=== PATIENT | female | born 1995 | race Caucasian/White ===

== ENCOUNTER 2024-12-24 19:40 | Emergency (ER) | payer OTHER, SELFPAY ==
[2024-12-24 19:40] VITALS: BP 126/84; PULSE 85; RESP 16; O2SAT 100
--- NOTE | 2024-12-24 19:47 | ED_ITS ---
HPI - Wound/Laceration General Chief Complaint: Wound/Laceration Stated Complaint: Chin laceration Time Seen by Provider: 12/24/24 19:46 Source: patient and family Mode of arrival: ambulatory Limitations: no limitations History of Present Illness HPI narrative: Patient is a 29-year-old female with a chin laceration which occurred prior to arrival. Minimal bleeding. Patient tripped and slipped and hit her chin on the wall. She did not have syncope. Onset (ago): minute(s) (Thirty) Location: face (Chin) Place: home Patient tetanus UTD: No Context: accidental Associated symptoms: pain Treatments prior to arrival: bandage Related Data Home Medications ?Medication ?Instructions ?Recorded ?Confirmed ?Last Taken ?Type No Home Medications 12/24/24 12/24/24 U nknown History Allergies Allergy/AdvReac Type Severity Reaction Status Date / Time No Known Allergies Allergy Verified 12/24/24 19:47 Review of Systems Review of Systems: All systems reviewed & are unremarkable except as noted in HPI and below Constitutional: Constitutional: Reports no additional constitutional complaints Eyes: Eyes: Reports no additional eye complaints ENT: Reports system reviewed and no additional complaints, except as documented Cardiovascular: Cardiovascular: Reports no additional cardiovascular complaints Respiratory: Respiratory: Reports no additional respiratory complaints Gastrointestinal: Gastrointestinal: Reports no additional gastrointestinal complaints Genitourinary: Genitourinary: Reports no additional female genitourinary complaints Musculoskeletal: Musculoskeletal: Reports no additional musculoskeletal complaints Integumentary/Breasts: Skin/Breast: Reports system reviewed and no additional complaints, except as docu Neurologic: Reports system reviewed and no additional complaints, except as documented Psychiatric: Psychiatric: Reports no additional psychiatric complaints Endocrine: Endocrine: Reports no additional endocrine complaints Hematologic/Lymphatic: Hematologic/Lymphatic: Reports no additional he matologic/lymphatic complaints Allergic/Immunologic: Allergic/Immunologic: Reports no additional allergic/immunologic complaints Exam Const: General: healthy appearing Nutritional Appearance: well nourished Orientation/consciousness: patient oriented x3 HENMT: Head: normal to inspection Ears: external ears normal Face/Nose/Sinus: Normal external nose present Eyes: Conjunctivae: conjunctivae normal Pupils: Equal, round and reactive pupils present EOM: EOMs intact bilaterally Neck: Neck: normal visual inspection Chest: Chest palpation & inspection: normal inspection of the chest Resp: Effort & Inspection: normal respiratory effort and not labored Auscultation: clear to auscultation bilaterally and no crackles Cardio: Rate: regular rate Rhythm: regular rhythm Heart sounds: no murmurs GI: Inspection: non-distended GI Palp: Yes Soft to palpation and No Tenderness to palpation present (GI) Auscultation: normal bowel sounds Back/Spine/Pelvis: Back: no CVA tenderness Skin: General skin exam: normal color Rashes: no rashes Wounds: wound noted Other: Chin laceration linear 2 cm with subcutaneous tissue seen and minimal bleeding Neuro: General: patient oriented x3, moves all extremities and no meningeal signs Extrem: General: normal to inspection, no clubbing, cyanosis or edema and no pedal edema Psych: Mental Status: mental status grossly normal Affect: normal affect Attitude: cooperative Course Vital Signs Vital signs: Vital Signs Pulse Rate 85 12/24/24 19:40 Respiratory Rate 16 12/24/24 19:40 Blood Pressure 126/84 12/24/24 19:40 Pulse Oximetry 100 12/24/24 19:40 Oxygen Delivery Room Air 12/24/24 19:40 Pulse Rate 85 12/24/24 19:40 Respiratory Rate 16 12/24/24 19:40 Blood Pressure 126/84 12/24/24 19:40 Pulse Oximetry 100 12/24/24 19:40 Oxygen Delivery Room Air 12/24/24 19:40 Procedures Other Procedure Procedure 1: Other Procedure: Chin laceration 2 cm: Area cleaned with chlorhexidine spray, sterile technique suture closure simple sutures, x6 simple sutures, area cleaned again with chlorhexidine, triple antibiotic ointment and a bandage placed, patient tolerated procedure well and no complications MDM - Wound/Laceration MDM Narrative Medical decision making narrative: Patient is a 29-year-old female with a chin laceration prior to arrival. This was an accident after trip and fall. Suture area closed. Tetanus booster. No antibiotics needed. No scans needed. Discharge Plan Discharge Clinical Impression: Chin laceration Qualifiers: Encounter type: initial encounter Qualified Code(s): S01.81XA - Laceration without foreign body of other part of head, initial encounter Patient Disposition: Home Condition: Stable Instructions: Care For Your Stitches (ED), Laceration (ED) Additional Instructions: Please have the stitches removed in 7-8 days. You may come back to the emergency room or usual primary doctor to have stitches removed. Please place antibiotic ointment on the area once to twice a day. Patient Language: Greenlandic Prescriptions: No Action No Home Medications Follow-up/Referrals: Giovanna Gagnon MD [Primary Care Provider, Family Practice]
[2024-12-24] MEDS: LIDOCAINE 1% LOCAL INJ 10 ML VIAL INFILTRATE (20:00)
[2024-12-24] MEDS: TETANUS,DIPHTHERIA,AC PERTUSSIS ADULT 0.5 ML (ADACEL) IM (20:00)
--- OUTSIDE RECORDS SUMMARY | 2024-12-24 20:19 | XMS_ITS | Clinical Summary ---
Author Organization [facility] Address [address] [facility] [place] [address] Care Team Providers Care Winter Intern Name Role Phone Giovanna Gagnon MD Primary Care Provider [phone] Allergies No known active allergies Medications vitamin, low iron, 27-0.8 MG tablet Take 1 tablet by mouth daily. Active Blood Glucose Monitoring Suppl (ONE TOUCH ULTRA 2) w/Device Kit 4 (four) times daily. 12/03/2019 Active Lancets (ONETOUCH DELICA PLUS [id number]) Misc 4 (four) times daily. 12/23/2019 Active Active Problems Problem Noted Date Diagnosed Date Premature rupture of membranes 07/13/2021 Normal labor 01/11/2020 Family History Medical History Relation Comments Diabetes Maternal Grandmother Diabetes Paternal Grandfather Relation Status Comments Maternal Grandmother Paternal Grandfather Social History Tobacco Use Types Packs/Day Years Used Date Smoking Tobacco: Never Smokeless Tobacco: Never Tobacco Cessation:Counseling Given: Not Answered Alcohol Use Standard Drinks/Week Comments Not Currently 0 (1 standard drink = 0.6 oz pur e alcohol) [facility] Utilities Answer Date Recorded In the past 12 months has e [employer], oil, or water [employer] threatened to shut off services in your home? No 02/10/2023 Humiliation, Afraid, Rape, and Kick questionnair e Answer Date Recorded Within the last year, have y ou been afraid of your partner or ex-partner? No 02/10/2023 Within the last year, have y ou been humiliated or emotionally abused in other ways by your partner or ex-partner? No Within the last year, have y ou been kicked, hit, slapped, or otherwise physically hurt by your partner or ex-partner? No 02/10/2023 Within the last year, have y ou been raped or forced to have any kind of sexual activity by your partner or ex-partner? No 02/10/2023 Social Connection and Isolation Panel Answer Date Recorded In a typical week, how many times do you talk on the phone with family, friends, or neighbors? More than three times a week 02/10/2023 How often do you get togethe r with friends or relatives? Twice a week 02/10/2023 How often do you attend chur or faith services? Never 02/10/2023 Do you belong to any clubs o r organizations such as religion groups, unions, fraternal or athletic groups, or school groups? No 02/10/2023 How often do you attend meet ings of the clubs or organizations you belong to? Never 02/10/2023 Are you , , di vorced, , never , or living with a partner? Never 02/10/2023 AUDIT-C Answer Date Recorded Q1: How often do you have a drink containing alcohol? Never 02/10/2023 Q2: How many drinks containi ng alcohol do you have on a typical day when you are drinking? Patient does not drink Q3: How often do you have si x or more drinks on one occasion? Never 02/10/2023 Overall Financial Resource Strain (CARDIA) Answe r Date Recorded How hard is it for you to pa y for the very basics like food, housing, medical care, and heating? Not hard at all 02/10/2023 [facility] - Occupational Stress Questionnaire Answer Date Recorded Do you feel stress - tense, restless, nervous, or anxious, or unable to sleep at night because your mind is troubled all the time - these days? Only a little 02/10/2023 Exercise Vital Sign Answer Date Recorde d On average, how many days pe r week do you engage in moderate to strenuous exercise (like a brisk walk)? 2 days 02/10/2023 On average, how many minutes do you engage in exercise at this level? 20 min 02/10/2023 Hunger Vital Sign Answer Date Recorded Within the past 12 months, y ou worried that your food would run out before you got the money to buy more. Never true 02/11/20 23 Within the past 12 months, t he food you bought just didn't last and you didn't have money to get more. Never true 02/10/2023 PRAPARE - Transportation Answer Date Re corded In the past 12 months, has l ack of transportation kept you from medical appointments or from getting medications? No 01/18 In the past 12 months, has l ack of transportation kept you from meetings, work, or from getting things needed for daily living? No 02/10/2023 Housing Stability Vital Sign Answer Carlos e Recorded In the last 12 months, was t here a time when you were not able to pay the mortgage or rent on time? No 02/10/2023 In the last 12 months, how many places have you lived? 1 02/10/2023 In the last 12 months, was t here a time when you did not have a steady place to sleep or slept in a detention (including now)? 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 Gender Identity Female 07/13/2021 6:26 AM CDT Sexual Orientation Not on file Last Filed Vital Signs Vital Sign Reading Time Taken Comments Blood Pressure 118/69 02/13/2023 10:38 AM STAFF DESIGN ENGINEER Pulse 87 02/13/2023 10:38 AM STAFF DESIGN ENGINEER Temperature 36.5 C (97.7 F) 02/13/2023 10:38 AM STAFF DESIGN ENGINEER Respiratory Rate 18 02/13/2023 10:38 AM STAFF DESIGN ENGINEER Oxygen Saturation 100% 02/12/2023 12:00 AM STAFF DESIGN ENGINEER Inhaled Oxygen Concentration - - Weight 73.9 kg (163 lb) 02/10/2023 6:35 PM STAFF DESIGN ENGINEER Height 162.6 cm (5' 4) 02/10/2023 6:35 PM STAFF DESIGN ENGINEER Body Mass Index 27.98 02/10/2023 6:35 PM STAFF DESIGN ENGINEER Plan of Treatment Health Maintenance Due Date Last Done Comments Cervical Cancer Screening Pa p Smear (Age 21 to 29) Every 3 Years 1996 Cervical Cancer Screening 1996 Annual Physical 06/25/1999 Hepatitis B Vaccines (1 of 3 - 19+ 3-dose series) 06/25/2015 DTaP, Tdap and Td Vaccines ( 2 - Td or Tdap) 10/02/2021 10/03/2011 HPV Vaccines (1 - 3-dose SCD M series) 06/25/2023 COVID-19 Vaccine ( - 2024-2 6 season) 2024 Influenza Adult (#1) 2024 Hepatitis C Completed 05/07/2021 Hepatitis A Vaccines Aged Out No long er eligible based on patient's age to complete this topic Meningococcal B Vaccine Aged Out No l onger eligible based on patient's age to complete this topic Meningococcal Vaccine Aged Out No ann reese eligible based on patient's age to complete this topic Pneumococcal Vaccine: Pediat rics (0 to 5 Years) and At-Risk Patients (6 to 49 Years) Aged Out No longer eligi ble based on patient's age to complete this topic RSV Immunizations Under 20 Months Aged Out No longer eligible based on patient's age to complete this topic Procedures Procedure Name Priority Date/Time Associated Diagnosis Comments HEPATITIS C ANTIBODY Routine 05/07/2021 11:23 AM CDT History of gestational diabetes in prior , currently in third trimester ([facility]) from Last 3 Months or Most Recently Relevant to Health Maintenance Results * HEPATITIS C ANTIBODY (05/07/2021 11:23 AM CDT) HEPATITIS C AB NON-REACTI VE NON-REACT MONY 05/08/2021 7:24 PM CDT [facility] Comment: ANTIBODIES TO HCV NOT DETECTED. DOES NOT EXCLUDE THE POSSIBILITY OF EXPOSURE TO HCV. 05/07/2021 11:2 3 AM CDT us Giovanna Gagnon MD LABORATORY Final Result [facility] [address] [place] [address], [place] [phone] from Last 3 Months or Most Recently Relevant to Health Maintenance Insurance [place] [employer] Advance Directives * Full Code (Latest Code Status on File) Date Activated Date Inactivated Comments 02/10/2023 7:29 PM 02/12/2023 4:36 AM * Full Code Date Activated Date Inactivated Comments 09/15/2022 2:17 PM 09/15/2022 6:25 PM * Full Code Date Activated Date Inactivated Comments 07/13/2021 6:56 AM 07/14/2021 2:31 PM * Full Code Date Activated Date Inactivated Comments 01/11/2020 2:54 AM 01/12/2020 3:47 PM Care Teams Winter Intern Relationship Specialty Start Date End Date Giovanna Gagnon MD [id number] [place] [id number] PCP - General FAMILY PRACTICE 11/18/19
[2024-12-24] MEDS: NEOMYCIN/POLYMYXIN/BACITRACIN OINTMENT PACKET 1 PACKET TOPICAL (20:42)
[2024-12-24 20:48] VITALS: BP 125/83; PULSE 83; RESP 16; TEMP 36.8; O2SAT 100
== END 2024-12-24 20:48 | disposition home or self-care (01) ==
LOC: CHSED 20:17
PROVIDERS: Emergency Provider Emergency Medicine; PCP Family Medicine
DX: S01.81XA Laceration without foreign body of other part of head, initial encounter (principal); W01.0XXA Fall on same level from slipping, tripping and stumbling without subsequent striking against object, initial encounter; Z23 Encounter for immunization
CPT/HCPCS: 12011; 90471; 90715; 99282; J2003